=== PATIENT | female | born 1990 | race Hispanic/Latino ===

== ENCOUNTER 2023-12-04 14:49 | Outpatient (CLI) | payer BC | END 2023-12-04 14:50 | disposition home or self-care (01) | LOC: BICMAMMO 14:49 | PROVIDERS: ATTEND Physician Assistant | DX: N63.15 Unspecified lump in the right breast, overlapping quadrants (principal); N63.20 Unspecified lump in the left breast, unspecified quadrant | CPT/HCPCS: 76642; 77066; G0279 ==